=== PATIENT | female | born 1990 | race Caucasian/White ===

== ENCOUNTER 2016-06-20 11:51 | Emergency (ER) | payer OTHER ==
[2016-06-20 12:03] VITALS: BMI 31.4
--- NOTE | 2016-06-20 12:10 | PDOC ---
History of Present Illness - General Chief Complaint: Vaginal Bleeding Stated Complaint: 8 WKS , BLEEDING Time Seen by Provider: 06/20/16 12:08 History Source: Patient Exam Limitations: No Limitations - History of Present Illness Initial Comments: 06/20/16 12:10 CHIEF COMPLAINT: Vaginal bleeding HISTORY OF PRESENT ILLNESS: This is a 25 year old female a1, 7 weeks 5 days according to u/s done yesterday, with a history of asthma (1 ICU admission during , never intubated) who presents to the ED complaining of vaginal spotting this morning. She denies pelvic pain, dysuria, or any other symptoms. Patient is Rh-. Ob is Dr. Parks. REVIEW OF SYSTEMS: GENERAL/CONSTITUTIONAL: No fever or chills. No weakness. No weight change. HEAD, EYES, EARS, NOSE AND THROAT: No change in vision. No ear pain or discharge. No sore throat. CARDIOVASCULAR: No chest pain or palpitations. RESPIRATORY: No cough, wheezing, or shortness of breath. GASTROINTESTINAL: No nausea, vomiting, diarrhea or constipation. GENITOURINARY: See HPI. MUSCULOSKELETAL: No joint or muscle swelling or pain. No neck or back pain. SKIN: No rash or easy bruising. NEUROLOGIC: No headache, vertigo, loss of consciousness, or loss of sensation. PSYCHIATRIC: No depression or anxiety. ENDOCRINE: No increased thirst. No abnormal weight change. HEMATOLOGIC/LYMPHATIC: No anemia, easy bleeding, or history of blood clots. ALLERGIC/IMMUNOLOGIC: No hives or skin allergy. No latex allergy. PHYSICAL EXAM: GENERAL: The patient is awake, alert, and fully oriented, in no acute distress. HEAD: Normal with no signs of trauma. ENT: Pupils equal, round and reactive to light, extraocular movements intact, sclera anicteric, conjunctiva clear. Neck supple. LUNGS: Clear to auscultation bilaterally. Normal excursion. No respiratory distress or use of accessory muscles. CV: RRR, S1/S2, no MRG. Cap refill < 2 sec. ABDOMEN: Soft, non-distended, non-tender. EXTREMITIES: Normal range of motion, no edema. NEUROLOGICAL: Normal speech, normal gait. CN II-XII grossly intact. PSYCH: Normal mood, normal affect. SKIN: Warm, dry, normal turgor, no rashes or lesions noted. WILL CALL ORDER CLERK: Normal external exam. Cervix long and closed no blood in vaginal vault. No CMT or adnexal tenderness. Past History - Past Medical History Allergies/Adverse Reactions: Allergies Allergy/AdvReac Type Severity Reaction Status Date / Time amoxicillin [Amoxicillin] Allergy Severe Difficulty Verified 06/20/16 12:03 Breathing Penicillins Allergy Severe Difficulty Verified 06/20/16 12:03 Breathing seafood Allergy Severe Difficulty Uncoded 06/20/16 12:03 Breathing Home Medications: Ambulatory Orders Albuterol Sulfate Inhaler - [Ventolin HFA Inhaler -] 2 inh IH Q2H PRN #1 inh Vitamins (Sjr) - 1 tab PO DAILY #30 tablet 12/18/12 Anemia: No Asthma: Yes Cancer: No Cardiac Disorders: Yes (heart murmur) CVA: No COPD: No CHF: No Dementia: No Diabetes: No GI Disorders: No Disorders: No HTN: No Hypercholesterolemia: No Liver Disease: No Seizures: No Thyroid Disease: No - Surgical History Abdominal Surgery: No Appendectomy: No Cardiac Surgery: No Cholecystectomy: Yes Lung Surgery: No Neurologic Surgery: No Orthopedic Surgery: No - Psycho/Social/Smoking Cessation Hx Anxiety: No Suicidal Ideation: No Smoking Status: No Smoking History: Never smoked Have you smoked in the past 12 months: No Number of Cigarettes Smoked Daily: 0 Hx Alcohol Use: No Drug/Substance Use Hx: No Substance Use Type: None Hx Substance Use Treatment: No *Physical Exam - Vital Signs Last Vital Signs Temp Pulse Resp BP Pulse Ox 98.4 F 85 20 127/73 100 06/20/16 12:01 06/20/16 12:01 06/20/16 12:01 06/20/16 12:01 06/20/16 12:01 ED Treatment Course - LABORATORY CBC & Chemistry Diagram: 06/20/16 13:10 06/20/16 13:10 - RADIOLOGY Radiology Studies Ordered: Category Date Time Status <14WKS US [US] Stat Ultrasound 06/20/16 12:09 Ordered Medical Decision Making - Medical Decision Making 06/20/16 14:58 A/P: 25 year old female with 1st trimester vaginal bleeding. 1. Labs including CBC, beta hcg, T&S, UA/culture 2. Rhogam 3. U/s U/s reviewed: Single, live IUP 7 weeks 6 days with FHR 156bpm. Small subchorionic hemorrhage. *DC/Admit/Observation/Transfer Diagnosis at time of Disposition: Vaginal bleeding before 22 weeks gestation - Discharge Dispostion Admit: No - Referrals Referrals: Remigio Parks MD [Staff Physician] - Call tomorrow - Patient Instructions Printed Discharge Instructions: DI for Vaginal Bleeding During Additional Instructions: -Pelvic rest (no sexual intercourse) until seen by ob provider -Follow up with your ob this week -Return here for heavy bleeding (more than one pad per hour) or any other concerning symptoms
[2016-06-20 13:17] LABS: BASOPHIL 0.6 % (0-2.0); EOSINOPHIL 3.7 % (0-4.5); MCH 26.8 pg (25.7-33.7); MCHC 33.3 g/dl (32.0-36.0); MEAN CELL VOLUME 80.4 fl (80-96); MEAN PLT VOLUME 7.4 fl (7.5-11.1); NEUTROPHILS 73.1 % (42.8-82.8); PLATELET COUNT 227 K/MM3 (134-434); RDW 15.7 % (11.6-15.6); WHITE BLOOD COUNT 6.3 K/mm3 (4.0-10.0)
[2016-06-20 13:23] LABS: URINE APPEARANCE CLEAR; URINE BILIRUBIN NEGATIVE (NEGATIVE); URINE BLOOD NEGATIVE (NEGATIVE); URINE COLOR YELLOW; URINE GLUCOSE (UA) NEGATIVE (NEGATIVE); URINE KETONE NEGATIVE (NEGATIVE); URINE LEUK ESTERASE NEGATIVE (NEGATIVE); URINE NITRITE NEGATIVE (NEGATIVE); URINE PROTEIN NEGATIVE (NEGATIVE); URINE UROBILINOGEN NEGATIVE E.U./dl (0.2-1.0)
[2016-06-20 13:47] LABS: ALBUMIN 3.8 g/dl (3.4-5.0); ANION GAP 9 (8-16); CALCIUM 8.6 mg/dL (8.5-10.1); CO2 27 mmol/L (21-32); CREATININE 0.7 mg/dL (0.55-1.02); GLUCOSE,RANDOM 78 mg/dL (74-106); SGOT/AST 6 U/L (15-37); SGPT/ALT 15 U/L (12-78)
[2016-06-20 14:03] LABS: ALK PHOS 90 U/L (45-117); BILIRUBIN,TOTAL 0.4 mg/dL (0.2-1.0); TOT PROT 6.7 g/dl (6.4-8.2)
[2016-06-20] MEDS ORDERED: RHO(D) IMMUNE GLOBULIN 1,500 UNIT DISP.SYRIN IM ONE (15:01)
--- NOTE | 2016-06-20 15:29 | PDOC ---
*Physical Exam - Vital Signs Last Vital Signs Temp Pulse Resp BP Pulse Ox 98.4 F 85 20 127/73 100 06/20/16 12:01 06/20/16 12:01 06/20/16 12:01 06/20/16 12:01 06/20/16 12:01 ED Treatment Course - LABORATORY CBC & Chemistry Diagram: 06/20/16 13:10 06/20/16 13:10 - ADDITIONAL ORDERS Additional order review: Laboratory Results 06/20/16 06/20/16 06/20/16 13:10 13:10 13:10 Sodium 140 Potassium 3.9 Chloride 104 Carbon Dioxide 27 Anion Gap 9 BUN 9 D Creatinine 0.7 D Creat Clearance w eGFR > 60 Random Glucose 78 Calcium 8.6 Total Bilirubin 0.4 AST 6 L ALT 15 Alkaline Phosphatase 90 Total Protein 6.7 Albumin 3.8 Beta HCG, Quant 07420.1 Urine Color Yellow Urine Appearance Clear Urine pH 5.0 D Ur Specific [place] 1.029 Urine Protein Negative Urine Glucose (UA) Negative Urine Ketones Negative Urine Blood Negative Urine Nitrite Negative Urine Bilirubin Negative Urine Urobilinogen Negative Ur Leukocyte Esterase Negative Blood Type A NEGATIVE Antibody Screen Negative Unit Expiration Date [id number] 06/20/16 13:10 RBC 4.70 MCV 80.4 MCHC 33.3 RDW 15.7 H MPV 7.4 L Neutrophils % 73.1 Lymphocytes % 17.2 Monocytes % 5.4 Eosinophils % 3.7 Basophils % 0.6 Medical Decision Making - Medical Decision Making 06/20/16 15:28 Patient seen and evaluated with the nurse practitioner. I agree with the overall evaluation, assessment, and management with the following summary of visit: 25y/o F with 1st trimester vaginal bleeding. + IUP with small subchorionic hemorrhage. Rh- received Rhogham. will f/u with OB. *DC/Admit/Observation/Transfer Diagnosis at time of Disposition: Vaginal bleeding before 22 weeks gestation - Referrals Referrals: Remigio Parks MD [Staff Physician] - Call tomorrow - Patient Instructions Printed Discharge Instructions: DI for Vaginal Bleeding During Additional Instructions: -Pelvic rest (no sexual intercourse) until seen by ob provider -Follow up with your ob this week -Return here for heavy bleeding (more than one pad per hour) or any other concerning symptoms - Post Discharge Activity
[2016-06-20 17:04] VITALS: BP 120/70; PULSE 68; TEMP 98.1
== END 2016-06-20 17:04 | disposition home or self-care (01) ==
LOC: JER 11:51
DX: O20.8 Other hemorrhage in early pregnancy (principal); Z3A.01 Less than 8 weeks gestation of pregnancy; J45.909 Unspecified asthma, uncomplicated
CPT/HCPCS: 36415; 76801-TC; 80053; 81003; 84702; 85025; 86850; 86900; 86901; 86999; 87086; 99282-25; J1561

== ENCOUNTER 2016-07-22 17:18 | Emergency (ER) | payer OTHER ==
[2016-07-22 17:24] VITALS: BP 116/71; PULSE 80; TEMP 98; BMI 31.4
--- NOTE | 2016-07-22 17:36 | PDOC ---
History of Present Illness - History of Present Illness Initial Comments: 07/22/16 17:45 Patient is a 25 year old female, 14 weeks, / A1, with significant medical hx of asthma s/p 1 ICU admission during (no intubation), who is presenting to the ED with vaginal bleeding since today. The patient went to the bathroom this morning passed a small red clot. A few hours later, the patient passed another small red clot while using the bathroom. Patient denies any abdominal pain or cramping. The patient was seen on 06/20/16 for vaginal bleeding and she received an US which revealed single live IUP of 7 weeks. The patient is Rh negative and receive a dose of rhogam last month. CHIEF LEGAL OFFICER: Remigio Parks MD PMD: Arie Barr MD <Leonila Wright - Last Filed: 07/22/16 18:56> <Christie Granados - Last Filed: 07/22/16 21:27> - General Chief Complaint: Vaginal Bleeding Stated Complaint: VAGINAL BLEEDING Time Seen by Provider: 07/22/16 17:34 Past History <Leonila Wright - Last Filed: 07/22/16 18:56> - Past Medical History Anemia: No Asthma: Yes Cancer: No Cardiac Disorders: Yes (heart murmur) CVA: No COPD: No CHF: No Dementia: No Diabetes: No GI Disorders: No Disorders: No HTN: No Hypercholesterolemia: No Liver Disease: No Seizures: No Thyroid Disease: No - Surgical History Abdominal Surgery: No Appendectomy: No Cardiac Surgery: No Cholecystectomy: Yes Lung Surgery: No Neurologic Surgery: No Orthopedic Surgery: No - Reproductive History (#): 7 Para: 5 - Psycho/Social/Smoking Cessation Hx Anxiety: No Suicidal Ideation: No Smoking Status: No Smoking History: Never smoked Have you smoked in the past 12 months: No Number of Cigarettes Smoked Daily: 0 Information on smoking cessation initiated: No Hx Alcohol Use: No Drug/Substance Use Hx: No Substance Use Type: None Hx Substance Use Treatment: No <Christie Granados - Last Filed: 07/22/16 21:27> - Past Medical History Allergies/Adverse Reactions: Allergies Allergy/AdvReac Type Severity Reaction Status Date / Time amoxicillin [Amoxicillin] Allergy Severe Difficulty Verified 07/22/16 17:21 Breathing Penicillins Allergy Severe Difficulty Verified 07/22/16 17:21 Breathing seafood Allergy Severe Difficulty Uncoded 07/22/16 17:21 Breathing Home Medications: Ambulatory Orders Albuterol Sulfate Inhaler - [Ventolin HFA Inhaler -] 2 inh IH Q2H PRN #1 inh Vitamins (Sjr) - 1 tab PO DAILY #30 tablet 12/18/12 Review of Systems - Review of Systems Comments:: 07/22/16 17:52 CONSTITUTIONAL: Absent: fever, chills, diaphoresis, generalized weakness, malaise, loss of appetite HEENT: Absent: rhinorrhea, nasal congestion, throat pain, throat swelling, difficulty swallowing, mouth swelling, ear pain, eye pain, visual changes CARDIOVASCULAR: Absent: chest pain, syncope, palpitations, irregular heart rate, lightheadedness , peripheral edema RESPIRATORY: Absent: cough, shortness of breath, dyspnea with exertion, orthopnea, wheezing, stridor, hemoptysis GASTROINTESTINAL: Absent: abdominal pain, abdominal distension, nausea, vomiting, diarrhea, constipation, melena, hematochezia GENITOURINARY: Present: vaginal bleeding Absent: dysuria, frequency, urgency, hesitancy, hematuria, flank pain, genital pain MUSCULOSKELETAL: Absent: myalgia, arthralgia, joint swelling SKIN: Absent: rash, itching, pallor HEMATOLOGIC/IMMUNOLOGIC: Absent: easy bleeding, easy bruising, lymphadenopathy, frequent infections ENDOCRINE: Absent: unexplained weight gain, unexplained weight loss, heat intolerance, cold intolerance NEUROLOGIC: Absent: headache, focal weakness or paresthesia, dizziness, unsteady gait, seizure, mental status changes, bladder or bowel incontinence. PSYCHIATRIC: Absent: anxiety, depression, suicidal or homicidal ideation, hallucinations <Leonila Wright - Last Filed: 07/22/16 18:56> *Physical Exam - Vital Signs Last Vital Signs Temp Pulse Resp BP Pulse Ox 98.0 F 80 18 116/71 100 07/22/16 17:22 07/22/16 17:22 07/22/16 17:22 07/22/16 17:22 07/22/16 17:22 - Physical Exam Comments: 07/22/16 17:53 GENERAL: Well developed, well nourished. Awake and alert. No acute distress. HEENT: Normocephalic, atraumatic. PERRLA, EOMI. No conjunctival pallor. Sclera are non- icteric. Moist mucous membranes. Oropharynx is clear. NECK: Supple. Full ROM. No JVD. Carotid pulses 2+ and symmetric, without bruits. No thyromegaly. No lymphadenopathy. CARDIOVASCULAR: Regular rate and rhythm. No murmurs, rubs, or gallops. Distal pulses are 2+ and symmetric. PULMONARY: No evidence of respiratory distress. Lungs clear to auscultation bilaterally. No wheezing, rales or rhonchi. ABDOMINAL: Soft. Non-tender. Non-distended. No rebound or guarding. No organomegaly. Normoactive bowel sounds. MUSCULOSKELETAL: Normal range of motion at all joints. No bony deformities or tenderness. No CVA tenderness. EXTREMITIES: No cyanosis. No clubbing. No edema. No calf tenderness. SKIN: Warm and dry. Normal capillary refill. No rashes. No jaundice. NEUROLOGICAL: Alert, awake, appropriate. Cranial nerves 2-12 intact. Normal speech. Gait is normal without ataxia. PSYCHIATRIC: Cooperative. Good eye contact. Appropriate mood and affect. PELVIC: Patient reports passing scant blood. <Leonila Wright - Last Filed: 07/22/16 18:56> - Vital Signs Last Vital Signs Temp Pulse Resp BP Pulse Ox 98.0 F 80 18 116/71 100 07/22/16 17:22 07/22/16 17:22 07/22/16 17:22 07/22/16 17:22 07/22/16 17:22 <Christie Granados - Last Filed: 07/22/16 21:27> ED Treatment Course - RADIOLOGY Radiograph Interpretation: 07/22/16 18:56 Steam Box Operator: ([email or web address]) Report Date: 07/22/2016 17:56:00 Report Status: Preliminary Begin of Report Content Referring Physician: Christie Granados Patient Name: Jane Giron THIS IS A PRELIMINARY REPORT FROM [facility] EXAM: Obstetrical ultrasound, less than 14 weeks IMAGES: 17 DATE OF EXAM: 2016-07-22 17:56:08.0 REASON FOR EXAM: Vaginal bleeding COMPARISON: None Findings: Single live intrauterine gestation at approximately 12 weeks and 3 days, based on crown-rump length. heart rate noted at 156 beats per minute. Cervix measures 3.4 cm and appears closed. Maternal ovaries appear normal. No obvious subchorionic hemorrhage. THIS DOCUMENT HAS BEEN ELECTRONICALLY SIGNED Román Omalley MD 07/22/2016 18:53 EST M.D. Please call [facility] [phone] ([phone]) with questions. End of Report Content <Leonila Wright - Last Filed: 07/22/16 18:56> Medical Decision Making - Medical Decision Making 07/22/16 18:30 25 yo female who is approx 14 weeks p/w scant vaginal blood seen when she urinated she already received rhogam for this PMH 07/22/16 19:00 US reveals SL IUP 12 weeks 3 days FHT 156 bpm imp threatened Ab plan follow up with her feather sawyer this week 07/22/16 21:27 <Christie Granados - Last Filed: 07/22/16 21:27> *DC/Admit/Observation/Transfer - Attestations Scribe Attestion: 07/22/16 17:54 Documentation prepared by Leonila Wright, acting as biomedical photographer for Christie Granados MD. <Leonila Wright - Last Filed: 07/22/16 18:56> <Christie Granados - Last Filed: 07/22/16 21:27> Diagnosis at time of Disposition: Vaginal bleeding before 22 weeks gestation - Discharge Dispostion Disposition: HOME Condition at time of disposition: Stable - Referrals Referrals: Arie Barr [Primary Care Provider] - - Patient Instructions Printed Discharge Instructions: DI for Threatened Additional Instructions: please continue your care and follow up with your feather sawyer
== END 2016-07-22 19:37 | disposition home or self-care (01) ==
LOC: JER 17:18
DX: O20.0 Threatened abortion (principal); Z3A.12 12 weeks gestation of pregnancy
CPT/HCPCS: 76816-TC; 99283-25

== ENCOUNTER 2017-01-27 12:00 | Inpatient (IN) | payer OTHER ==
[2017-01-27] MEDS ORDERED: DEXTROSE 5%-LACTATED RINGERS 1,000 ML IV ONE (13:00)
[2017-01-27] MEDS: DEXTROSE 5%-LACTATED RINGERS 1,000 ML IV SCH (13:45)
[2017-01-28 00:28] LABS: BASOPHIL 0.5 % (0-2.0); EOSINOPHIL 2.1 % (0-4.5); MEAN PLT VOLUME 6.7 fl (7.5-11.1); NEUTROPHILS 83.7 % (42.8-82.8); PLATELET COUNT 311 K/MM3 (134-434); RDW 16.8 % (11.6-15.6); WHITE BLOOD COUNT 13.1 K/mm3 (4.0-10.0)
[2017-01-28 00:47] LABS: INR 0.95 (0.82-1.09); PROTHROMBIN TIME (PATIENT) 10.7 SEC (9.98-11.88)
[2017-01-28 00:50] LABS: ACTIVATED PTT 24.5 SECONDS (26.9-34.4)
[2017-01-28 00:55] LABS: ANION GAP 12 (8-16); CALCIUM 7.8 mg/dL (8.5-10.1); CO2 20 mmol/L (21-32); CREATININE 0.8 mg/dL (0.55-1.02); GLUCOSE,RANDOM 97 mg/dL (74-106)
[2017-01-28 01:07] VITALS: BMI 31.5
[2017-01-28] MEDS ORDERED: DEXTROSE 5%-LACTATED RINGERS 1,000 ML IV SCH (01:15)
--- NOTE | 2017-01-28 01:27 | DS ---
Physical Exam-ROAD REPAIRER Vital Signs: Vital Signs Temperature 98.5 F 01/27/17 22:50 Pulse Rate 110 H 01/27/17 22:50 Respiratory Rate 20 01/27/17 22:50 Blood Pressure 124/84 01/27/17 22:50 O2 Sat by Pulse Oximetry (%) Labs: CBC, BMP 01/27/17 23:40 01/27/17 23:40 Delivery, Single - [place] Feeding Plan Initial Plan: Elected not to breastfeed exclusively throughout hospitalization Discharge Summary Reason For Visit: LABOR ADMIT - Instructions Diet, Activity, Other Instructions: Patient is being discharge home as per MD orders. Patient is to keep next scheduled MD appointment. Return to activities of daily living, diet as tolerated and increase oral intake. Return to labor and delivery if any signs of contractions strong and regular, decrease movement, rupture of membranes or any vaginal bleeding. All questions answered prior to discharge. Patient verbalizes understanding of discharge instructions. Referrals: [facility] ([facility]) [Outside] - Home Medications Comprehensive Discharge Medication List: Ambulatory Orders Albuterol Sulfate Inhaler - [Ventolin HFA Inhaler -] 2 inh IH Q2H PRN #1 inh Vitamins (Sjr) - 1 tab PO DAILY #30 tablet 12/18/12
--- NOTE | 2017-01-28 01:33 | HP ---
Past Medical History - Admission Chief Complaint: Labor pain History of Present Illness: 26 yo @ 39 weeks gestation, EDC 01/31/17, admitted for labor pain. History Source: Patient Limitations to Obtaining History: No Limitations - Past Medical History Pulmonary: Yes: Asthma. No: Bronchitis, Cancer, COPD, O2 Dependent, Pneumonia, Previously Intubated, Pulmonary Embolus, Pulmonary Fibrosis, Sleep Apnea, Other ...: 7 ...Para: 5 ...Term: 5 ...: 0 ...Spon : 0 ...Induced : 1 ...Multiple Gestation: 0 ...LMP: 04/25/16 ... Weeks Gestation by Dates: 39.3 ...EDC by Dates: 01/31/17 ...EDC by Sono: 01/30/17 - Past Surgical History Past Surgical History: Yes: Cholecystectomy Hx Myomectomy: No Hx Transabdominal Cerclage: No - Smoking History Smoking history: Never smoked Have you smoked in the past 12 months: No Aproximately how many cigarettes per day: 0 - Alcohol/Substance Use Hx Alcohol Use: No - Social History Usual Living Arrangement: Yes: With Significant Other History of Recent Travel: No Home Medications - Allergies Allergies/Adverse Reactions: Allergies Allergy/AdvReac Type Severity Reaction Status Date / Time amoxicillin [Amoxicillin] Allergy Severe Difficulty Verified 01/27/17 13:01 Breathing Penicillins Allergy Severe Difficulty Verified 01/27/17 13:01 Breathing pneumococcal vaccine Allergy Verified 01/27/17 13:01 seafood Allergy Severe Difficulty Uncoded 01/27/17 13:01 Breathing - Home Medications Home Medications: Ambulatory Orders Albuterol Sulfate Inhaler - [Ventolin HFA Inhaler -] 2 inh IH Q2H PRN #1 inh Vitamins (Sjr) - 1 tab PO DAILY #30 tablet 12/18/12 Family Disease History - Family Disease History Family History: Unremarkable Family Disease History: Respiratory: Mother Review of Systems - Review of Systems Constitutional: reports: No Symptoms Eyes: reports: No Symptoms HENT: reports: No Symptoms Neck: reports: No Symptoms Cardiovascular: reports: No Symptoms Respiratory: reports: No Symptoms Gastrointestinal: reports: No Symptoms Genitourinary: reports: Pain Breasts: reports: No Symptoms Reported Musculoskeletal: reports: No Symptoms Integumentary: reports: No Symptoms Neurological: reports: No Symptoms Endocrine: reports: No Symptoms Hematology/Lymphatic: reports: No Symptoms Psychiatric: reports: No Symptoms Pain Intensity: 8 Physical Exam - Maternity Vital Signs: Vital Signs Temperature 98.5 F 01/27/17 22:50 Pulse Rate 110 H 01/27/17 22:50 Respiratory Rate 20 01/27/17 22:50 Blood Pressure 124/84 01/27/17 22:50 O2 Sat by Pulse Oximetry (%) Constitutional: Yes: Well Nourished Eyes: Yes: Conjunctiva Clear HENT: Yes: Atraumatic Neck: Yes: Supple Cardiovascular: Yes: Regular Rate and Rhythm Lungs: Clear to auscultation - Abdominal Exam/OB Number of Fetuses: Single Presentation: Vertex Intensity: Mod/Strong - Vaginal Exam/OB Vaginal Bleediing: No Dilatation (cm): 6 Effacement (%): 100 Amniotic Membrane Status: Intact Presentation: Vertex/Position Station: -2 - Physical Exam ...Motor Strength: WNL Psychiatric: Yes: Alert, Oriented - Labs Lab Results: CBC, BMP 01/27/17 23:40 01/27/17 23:40 Assessment/Plan Active labor Admit to L&D Anticipate
--- NOTE | 2017-01-28 01:35 | PN ---
Delivery - Delivery Vaginal Delivery: Spontaneous Episiotomy/Laceration: None EBL (cc): 250 Delivery, Single - Feeding Plan Initial Plan: Elected not to breastfeed exclusively throughout hospitalization Remarks - Remarks Remarks: Normal spontaneous vaginal delivery of a live infant. Nose / Oropharynx suctioned @ perineum. Nuchal cord x 1 cut and clamped. Placenta expelled spontaneously intact.
[2017-01-28] MEDS ORDERED: WITCH HAZEL 50% (TUCKS) 40 PAD/JAR PAD TP PRN (01:36)
[2017-01-28] MEDS ORDERED: METHYLERGONOVINE MALEATE 0.2 MG/1 ML AMP IM PRN (01:36)
[2017-01-28] MEDS ORDERED: BENZOCAINE 20% 57 GM BOTTLE TP PRN (01:36)
[2017-01-28] MEDS ORDERED: BENZOCAINE 28 GM HEMORRHOIDAL OINTMENT TP PRN (01:36)
[2017-01-28] MEDS ORDERED: BISACODYL 10 MG SUPP.RECT RC PRN (01:36)
[2017-01-28] MEDS ORDERED: OXYTOCIN 20 UNITS in 0.9% NS 1,000 ML IV SCH (01:45)
[2017-01-28] MEDS ORDERED: CLINDAMYCIN 900 MG PREMIX IVPB 50 ML IVPB ONE (02:06)
[2017-01-28] MEDS: IBUPROFEN 600 MG TABLET (FP) PO PRN ×4 (02:25→23:19)
[2017-01-28] MEDS: ACETAMINOPHEN 325 MG TABLET (FP) PO PRN ×4 (02:26→23:20)
[2017-01-28] MEDS ORDERED: CLINDAMYCIN 600MG PREMIX IVPB 50 ML IVPB SCH ×2 (08:00→12:15)
[2017-01-28] MEDS: FERROUS SO4 325 MG TABLET (FP) PO SCH ×3 (08:55→16:37)
[2017-01-28] MEDS: PRENATAL VITAMINS W/ FOLIC ACID TABLET (FP) PO SCH (09:24)
[2017-01-28] MEDS: DEXTROSE 5%-LACTATED RINGERS 1,000 ML IV SCH (20:01)
[2017-01-28] MEDS: SENNOSIDES/DOCUSATE COMBO (SENNA PLUS) TABLET (UD) PO PRN (21:41)
--- NOTE | 2017-01-29 06:55 | PN ---
Post Progress Note Post Day: 1 Type of Delivery: Vital Signs: Vital Signs Temperature 98.7 F 01/28/17 22:00 Pulse Rate 80 01/28/17 22:00 Respiratory Rate 18 01/28/17 22:00 Blood Pressure 124/77 01/28/17 22:00 O2 Sat by Pulse Oximetry (%) 99 01/28/17 01:30 Breast Exam: Yes: Soft Uterus: Yes: Fundus Firm Abdomen/GI: Yes: Abdomen soft Lochia: Yes: Rubra Lochia, amount: Small Extremities: Yes: Calves non-tender Perineum: Yes: Intact Activity: Ambulating - Labs Labs: CBC WBC 13.1 K/mm3 (4.0-10.0) H D 01/27/17 23:40 RBC 4.15 M/mm3 (3.60-5.2) 01/27/17 23:40 Hgb 9.6 GM/dL (10.7-15.3) L D 01/27/17 23:40 Hct 29.9 % (32.4-45.2) L D 01/27/17 23:40 MCV 72.0 fl (80-96) L 01/27/17 23:40 MCH 23.0 pg (25.7-33.7) L 01/27/17 23:40 MCHC 32.0 g/dl (32.0-36.0) 01/27/17 23:40 RDW 16.8 % (11.6-15.6) H 01/27/17 23:40 Plt Count 311 K/MM3 (134-434) D 01/27/17 23:40 MPV 6.7 fl (7.5-11.1) L 01/27/17 23:40 Neutrophils % 83.7 % (42.8-82.8) H 01/27/17 23:40 Lymphocytes % 8.9 % (8-40) D 01/27/17 23:40 Monocytes % 4.8 % (3.8-10.2) 01/27/17 23:40 Eosinophils % 2.1 % (0-4.5) 01/27/17 23:40 Basophils % 0.5 % (0-2.0) 01/27/17 23:40 Assessment/Plan stable oob reg diet dc tomorrow
[2017-01-29 08:31] LABS: BASOPHIL 0.7 % (0-2.0); EOSINOPHIL 4.1 % (0-4.5); MCH 23.7 pg (25.7-33.7); MCHC 32.9 g/dl (32.0-36.0); MEAN CELL VOLUME 72.2 fl (80-96); MEAN PLT VOLUME 6.6 fl (7.5-11.1); NEUTROPHILS 67.5 % (42.8-82.8); RDW 16.8 % (11.6-15.6); WHITE BLOOD COUNT 10.1 K/mm3 (4.0-10.0)
[2017-01-29] MEDS: PRENATAL VITAMINS W/ FOLIC ACID TABLET (FP) PO SCH (09:10)
[2017-01-29] MEDS: FERROUS SO4 325 MG TABLET (FP) PO SCH ×3 (09:11→17:18)
[2017-01-29] MEDS: IBUPROFEN 600 MG TABLET (FP) PO PRN ×2 (09:11→19:16)
[2017-01-29] MEDS ORDERED: FLU VACC QS2017-18 36MOS UP/PF 60 MCG/0.5 ML SYRINGE IM ONE (10:00)
[2017-01-29] MEDS ORDERED: DIPHTH,PERTUSS(ACELL),TET 0.5 ML DISP.SYRIN IM ONE (10:00)
[2017-01-29 13:21] LABS: PLATELET COMMENT2 NO CLOTTING DETECTED; PLATELET COUNT 242 K/MM3 (134-434); PLATELET ESTIMATE ADEQUATE (NORMAL)
[2017-01-29] MEDS: ACETAMINOPHEN 325 MG TABLET (FP) PO PRN (19:15)
[2017-01-29] MEDS: SENNOSIDES/DOCUSATE COMBO (SENNA PLUS) TABLET (UD) PO PRN (20:53)
[2017-01-30] MEDS: ACETAMINOPHEN 325 MG TABLET (FP) PO PRN ×2 (01:36→08:44)
[2017-01-30] MEDS: IBUPROFEN 600 MG TABLET (FP) PO PRN ×2 (01:37→08:41)
[2017-01-30] MEDS: FERROUS SO4 325 MG TABLET (FP) PO SCH (08:35)
[2017-01-30 08:49] VITALS: BP 112/71; PULSE 91; TEMP 98.6
[2017-01-30] MEDS: PRENATAL VITAMINS W/ FOLIC ACID TABLET (FP) PO SCH (10:12)
== END 2017-01-30 11:55 | disposition home or self-care (01) | DRG 560 ==
LOC: JDEL 12:00 → JLDR 22:50 → J3W 01-28 02:53
PROVIDERS: ADMIT Obstetrics & Gynecology; ATTEND Obstetrics & Gynecology
PROC: 10E0XZZ Delivery of Products of Conception, External Approach (ICD-10-PCS; principal; 2017-01-28)
PROC: 3E0334Z Introduction of Serum, Toxoid and Vaccine into Peripheral Vein, Percutaneous Approach (ICD-10-PCS; 2017-01-28)
DX: O26.893 Other specified pregnancy related conditions, third trimester (principal); Z67.91 Unspecified blood type, Rh negative; Z3A.39 39 weeks gestation of pregnancy; Z37.0 Single live birth
CPT/HCPCS: 36415; 59025; 80048; 85025; 85461; 85610; 85730; 86593; 86850; 86900; 86901; 86999; 90686; 90715; G0008

== ENCOUNTER 2017-07-20 15:58 | Emergency (ER) | payer OTHER ==
[2017-07-20 16:11] VITALS: BP 117/78; PULSE 81; TEMP 98.8; BMI 29.2
--- NOTE | 2017-07-20 16:53 | PDOC ---
History of Present Illness - General Chief Complaint: Pain, Acute Stated Complaint: SICK Time Seen by Provider: 07/20/17 16:14 History Source: Patient Exam Limitations: No Limitations - History of Present Illness Initial Comments: CHIEF COMPLAINT: 26 y/o female here for treatment for STDs. HISTORY OF PRESENT ILLNESS: The patient states her current boyfriend and father of her 6 children went on a break for 1 month and after they got back together he was diagnosed with chlamydia. She states he was just treated and told her to be treated. She is asymptomatic. Vital signs on arrival are within normal limits. REVIEW OF SYSTEMS: GENERAL/CONSTITUTIONAL: No fever/chills. No weakness. No weight change. HEAD, EYES, EARS, NOSE AND THROAT: No change in vision. No ear pain or discharge. No sore throat. CARDIOVASCULAR: No chest pain or shortness of breath. RESPIRATORY: No cough, wheezing, or hemoptysis. GASTROINTESTINAL: No nausea, vomiting, diarrhea. GENITOURINARY: No dysuria, frequency, or change in urination. MUSCULOSKELETAL: No joint or muscle swelling or pain. No neck or back pain. SKIN: No rash or easy bruising. NEUROLOGIC: No headache, vertigo, loss of consciousness, or loss of sensation. PHYSICAL EXAM: GENERAL: The patient is awake, alert, and fully oriented, in no acute distress. SHe is well appearing and ambulatory. HEAD: Normal with no signs of trauma. ENT: Pupils equal, round and reactive to light, extraocular movements intact, sclera anicteric, conjunctiva clear. Neck supple. LUNGS: Clear to auscultation bilaterally. Normal excursion. No respiratory distress or use of accessory muscles. CV: RRR, S1/S2, no MRG. Cap refill < 2 sec. ABDOMEN: Soft, non-distended, non-tender even to deep palpation, no hepatomegaly or splenomegaly, no masses. EXTREMITIES: Normal range of motion, no edema. NEUROLOGICAL: Normal speech, normal gait. CN II-XII grossly intact. PSYCH: Normal mood, normal affect. SKIN: Warm, dry, normal turgor, no rashes or lesions noted. Past History - Past Medical History Allergies/Adverse Reactions: Allergies Allergy/AdvReac Type Severity Reaction Status Date / Time amoxicillin [Amoxicillin] Allergy Severe Difficulty Verified 07/20/17 16:06 Breathing Penicillins Allergy Severe Difficulty Verified 07/20/17 16:06 Breathing pneumococcal vaccine Allergy Verified 07/20/17 16:06 seafood Allergy Severe Difficulty Uncoded 07/20/17 16:06 Breathing sea food Allergy Uncoded 07/20/17 16:06 Home Medications: Ambulatory Orders NK [No Known Home Medication] 07/20/17 Anemia: No Asthma: Yes Cancer: No Cardiac Disorders: No CVA: No COPD: No CHF: No Dementia: No Diabetes: No GI Disorders: No Disorders: No HTN: No Hypercholesterolemia: No Liver Disease: No Seizures: No Thyroid Disease: No - Surgical History Abdominal Surgery: No Appendectomy: No Cardiac Surgery: No Cholecystectomy: Yes Lung Surgery: No Neurologic Surgery: No Orthopedic Surgery: No - Reproductive History (#): 7 Para: 5 - Immunization History Immunization Up to Date: Yes - Suicide/Smoking/Psychosocial Hx Smoking Status: No Smoking History: Never smoked Have you smoked in the past 12 months: No Number of Cigarettes Smoked Daily: 0 Information on smoking cessation initiated: No Hx Alcohol Use: No Drug/Substance Use Hx: No Substance Use Type: None Hx Substance Use Treatment: No *Physical Exam - Vital Signs Last Vital Signs Temp Pulse Resp BP Pulse Ox 98.8 F 81 18 117/78 98 07/20/17 16:06 07/20/17 16:06 07/20/17 16:06 07/20/17 16:06 07/20/17 16:06 Medical Decision Making - Medical Decision Making A/P: 26 y/o female here for treatment for chlamydia after exposure to an infected individual. Plan is as follows: 1. UA/hcg 2. GC/chlamydia 3. Treatment with Ceftriaxone and azithro 4. Monitor for ADR No ADRs 30 minutes after admin of ceftriaxone. Will discharge to home. INstructed her to abstain from sex for 1 week and inform all sexual partners they should be treated. The patient verbalizes understanding of all instructions, has no further questions and is awaiting discharge. *DC/Admit/Observation/Transfer Diagnosis at time of Disposition: Exposure to chlamydia - Discharge Dispostion Disposition: HOME Condition at time of disposition: Good - Referrals Referrals: Arie Barr [Primary Care Provider] - - Patient Instructions Printed Discharge Instructions: DI for Chlamydia Additional Instructions: Discharge Instructions: -You were treated for potential exposure to chlamydia with Ceftriaxone and Azithromycin -Please abstain from sex for 1 week -Inform all sexual partners to be treated -Return to the ER with any worsening or concerning symptoms - Post Discharge Activity
[2017-07-20] MEDS ORDERED: AZITHROMYCIN 1 GM PACKET PO ONE (17:03)
[2017-07-20] MEDS ORDERED: AZITHROMYCIN 250 MG TABLET PO ONE (17:06)
[2017-07-20] MEDS ORDERED: AZITHROMYCIN 250 MG TABLET ONE (17:06)
[2017-07-20 19:45] LABS: URINE APPEARANCE CLEAR; URINE BILIRUBIN NEGATIVE (<2.0 mg/dL); URINE BLOOD 1+ (NEGATIVE); URINE COLOR YELLOW; URINE GLUCOSE (UA) NEGATIVE (NEGATIVE); URINE KETONE NEGATIVE (NEGATIVE); URINE LEUK ESTERASE NEGATIVE (NEGATIVE); URINE NITRITE NEGATIVE (NEGATIVE); URINE PROTEIN 1+ (NEGATIVE); URINE UROBILINOGEN NEGATIVE mg/dL (0.2-1.0)
[2017-07-20 19:48] LABS: EPI CELLS RARE /HPF (FEW); URINE MUCUS RARE
== END 2017-07-20 18:13 | disposition home or self-care (01) ==
LOC: JERFT 15:58
DX: Z20.2 Contact with and (suspected) exposure to infections with a predominantly sexual mode of transmission (principal)
CPT/HCPCS: 36415; 81003; 81015; 84703; 87086; 87491; 87591; 96372; 99281-25

== ENCOUNTER 2019-10-04 11:49 | Emergency (ER) | payer OTHER ==
--- NOTE | 2019-10-04 11:52 | PDOC ---
Rapid Medical Evaluation Chief Complaint: Head/Neck problem Time Seen by Provider: 10/04/19 11:51 Medical Evaluation: Allergies Allergy/AdvReac Type Severity Reaction Status Date / Time amoxicillin [Amoxicillin] Allergy Severe Difficulty Verified 07/20/17 16:06 Breathing Penicillins Allergy Severe Difficulty Verified 07/20/17 16:06 Breathing pneumococcal vaccine Allergy Verified 07/20/17 16:06 seafood Allergy Severe Difficulty Uncoded 07/20/17 16:06 Breathing sea food Allergy Uncoded 07/20/17 16:06 10/04/19 11:51 I performed a brief in-person evaluation of this patient. Pt is a 29 y/o female with posterior neck "numbness" and pain since last night. She states it hurts to move her neck. Pain started while laying down. No injury. Pertinent physical exam findings: + tender to palpation to the midline inferior c-spine and R trapezius muscle. I have ordered the following: c-spine xr, motrin Patient to proceed to ED for further evaluation Discharge Disposition - Diagnosis Neck pain - Referrals - Patient Instructions - Post Discharge Activity
[2019-10-04 11:53] VITALS: BP 119/79; PULSE 100; TEMP 99; BMI 34.3
[2019-10-04] MEDS ORDERED: IBUPROFEN 600 MG TABLET (FP) PO ONE ×2 (11:53→13:02)
--- NOTE | 2019-10-04 12:59 | PDOC ---
History of Present Illness - General Chief Complaint: Head/Neck problem Stated Complaint: NECK/SHOULDER NUMBNESS Time Seen by Provider: 10/04/19 11:51 History Source: Patient Exam Limitations: No Limitations - History of Present Illness Initial Comments: 10/04/19 12:44 29-year-old female presents to ED with complaints of left shoulder and left arm tingling for the past week which extends to her left bicep. Patient states does frequent lifting since she has 6 children at home but denies any specific injury. Patient denies chest pain, shortness of breath, skin discoloration, or coldness of the extremity. Patient states did not take anything for the above and decided come to the ER for further evaluation. Is this a multiple visit Asthma Patient?: No Timing/Duration: intermittent Severity: mild Associated Symptoms: reports: other (left nwck and arm tingling) Past History - Travel History Traveled outside of the country in the last 30 days: No Close contact w/someone who was outside of country & ill: No - Medical History Allergies/Adverse Reactions: Allergies Allergy/AdvReac Type Severity Reaction Status Date / Time amoxicillin [Amoxicillin] Allergy Severe Difficulty Verified 10/04/19 11:54 Breathing Penicillins Allergy Severe Difficulty Verified 10/04/19 11:54 Breathing pneumococcal vaccine Allergy Verified 10/04/19 11:54 seafood Allergy Severe Difficulty Uncoded 10/04/19 11:54 Breathing sea food Allergy Uncoded 10/04/19 11:54 Home Medications: Ambulatory Orders NK [No Known Home Medication] 07/20/17 Anemia: No Asthma: Yes Cancer: No Cardiac Disorders: No CVA: No COPD: No CHF: No Dementia: No Diabetes: No GI Disorders: No Disorders: No HTN: No Hypercholesterolemia: No Liver Disease: No Seizures: No Thyroid Disease: No - Surgical History Abdominal Surgery: No Appendectomy: No Cardiac Surgery: No Cholecystectomy: Yes Lung Surgery: No Neurologic Surgery: No Orthopedic Surgery: No - Reproductive History (#): 7 Para: 5 - Immunization History Immunization Up to Date: Yes - Psycho-Social/Smoking History Smoking Status: No Smoking History: Never smoked Have you smoked in the past 12 months: No Number of Cigarettes Smoked Daily: 0 - Substance Abuse Hx (Audit-C & DAST Scrn) How often the patient has a drink containing alcohol: Never Score: In Men: 4 or > Positive; In Women: 3 or > Positive: 0 Screen Result (Pos requires Nsg. Audit-10AR): Negative Review of Systems - Review of Systems Able to Perform ROS?: No Is the patient limited Chinese proficient: No Constitutional: No: Symptoms Reported Musculoskeletal: Yes: Muscle Pain, Neck Pain Integumentary: No: Symptoms Reported Neurological: Yes: Numbness, Tingling Endocrine: No: Symptoms Reported Hematologic/Lymphatic: No: Symptoms Reported *Physical Exam - Vital Signs Last Vital Signs Temp Pulse Resp BP Pulse Ox 99.0 F 100 H 18 119/79 99 10/04/19 11:51 10/04/19 11:51 10/04/19 11:51 10/04/19 11:51 10/04/19 11:51 - Physical Exam General Appearance: Yes: Nourished, Appropriately Dressed. No: Apparent Distress HEENT: negative: Pale Conjunctivae Neck: positive: Supple, Tender midline (C5-C6). negative: Decreased range of motion Respiratory/Chest: positive: Lungs Clear, Normal Breath Sounds. negative: Respiratory Distress, Accessory Muscle Use Cardiovascular: positive: Regular Rhythm, Regular Rate. negative: Murmur Gastrointestinal/Abdominal: positive: Soft. negative: Tenderness Integumentary: positive: Normal Color, Warm, Moist Neurologic: positive: Motor Strength 5/5 (Ambulatory. left arm full range of motion) Medical Decision Making - Medical Decision Making 10/04/19 13:05 Chief complaint: Left arm left neck tingling with subjective tingling over the past week which is now resolved. Patient frequent lifting at home due to sick small children. Exam: Patient with C5-C6 tenderness otherwise full range of motion of left upper extremity 5 out of 5 strength extremity 1-2+ radial pulses. Plan: cervical x-ray Motrin 10/04/19 13:07 Cervical x-ray negative for acute pathology. Discharge - Discharge Information Problems reviewed: Yes Clinical Impression/Diagnosis: Neck pain Condition: Good Disposition: HOME - Follow up/Referral - Patient Discharge Instructions Patient Printed Discharge Instructions: DI for Cervical Radiculopathy Additional Instructions: May take Motrin 600 mg every 8 hours to decrease inflammation and discomfort. Avoid lifting with your back and upper extremity using your legs. If symptoms continue may follow-up with orthopedist as today's x-rays were negative - Post Discharge Activity
== END 2019-10-04 13:21 | disposition home or self-care (01) ==
LOC: JERFT 11:49
DX: M54.2 Cervicalgia (principal)
CPT/HCPCS: 72050-TC-FY; 99284-25

== ENCOUNTER 2021-05-08 19:28 | Emergency (ER) | payer OTHER ==
[2021-05-08 19:34] VITALS: BP 123/84; PULSE 105; TEMP 98.1; BMI 37.3
[2021-05-08] MEDS ORDERED: ACETAMINOPHEN 500 MG TABLET (FP) PO ONE (21:12)
[2021-05-08] MEDS ORDERED: METOCLOPRAMIDE HCL 10 MG TABLET (FP) PO ONE ×2 (21:15→21:41)
[2021-05-08] MEDS ORDERED: ACETAMINOPHEN 325 MG TABLET (FP) ONE (21:41)
[2021-05-08 21:45] LABS: PH,URINE 6.5 (5.0-8.0); URINE APPEARANCE CLEAR; URINE BILIRUBIN NEGATIVE (NEGATIVE); URINE COLOR YELLOW; URINE GLUCOSE (UA) NEGATIVE (NEGATIVE); URINE KETONE TRACE (NEGATIVE); URINE LEUK ESTERASE NEGATIVE (NEGATIVE); URINE NITRITE NEGATIVE (NEGATIVE); URINE PROTEIN TRACE (NEGATIVE)
== END 2021-05-08 22:10 | disposition home or self-care (01) ==
LOC: JERFT 19:28
DX: G44.209 Tension-type headache, unspecified, not intractable (principal)
CPT/HCPCS: 81003; 84703; 99283-25

== ENCOUNTER 2021-10-04 20:24 | Emergency (ER) | payer OTHER ==
[2021-10-04 20:32] VITALS: BP 120/83; PULSE 105; TEMP 98.8; BMI 28.3
[2021-10-04] MEDS ORDERED: LIDOCAINE PATCH REMOVAL MC SCH (22:00)
[2021-10-04] MEDS ORDERED: LIDOCAINE 5% TOPICAL PATCH TP ONE (22:25)
[2021-10-04 22:46] LABS: URINE APPEARANCE CLEAR; URINE BILIRUBIN NEGATIVE (NEGATIVE); URINE COLOR YELLOW; URINE GLUCOSE (UA) NEGATIVE (NEGATIVE); URINE KETONE NEGATIVE (NEGATIVE); URINE LEUK ESTERASE NEGATIVE (NEGATIVE); URINE NITRITE NEGATIVE (NEGATIVE); URINE PROTEIN NEGATIVE (NEGATIVE)
[2021-10-04] MEDS ORDERED: KETOROLAC TROMETHAMINE 30 MG/1 ML VIAL IM ONE (22:49)
[2021-10-04] MEDS ORDERED: KETOROLAC TROMETHAMINE 30 MG/1 ML VIAL ONE (22:57)
[2021-10-04] MEDS ORDERED: LIDOCAINE 5% TOPICAL PATCH ONE (22:57)
== END 2021-10-05 | disposition home or self-care (01) ==
LOC: JER 20:24
PROC: 3E023GC Introduction of Other Therapeutic Substance into Muscle, Percutaneous Approach (ICD-10-PCS; principal; 2021-10-04)
DX: M54.89 Other dorsalgia (principal)
CPT/HCPCS: 81003; 84703; 87086; 99284-25

== ENCOUNTER 2022-11-04 18:27 | Emergency (ER) | payer OTHER ==
[2022-11-04 18:31] VITALS: BP 119/74; PULSE 90; RESP 18; TEMP 98.6; BMI 37.3
[2022-11-04] MEDS ORDERED: DOXYCYCLINE HYCLATE 100 MG CAPSULE PO ONE ×2 (19:10→19:30)
[2022-11-04] MEDS ORDERED: WATER FOR INJ,STERILE 10 ML ONE (19:31)
== END 2022-11-04 20:10 | disposition home or self-care (01) ==
LOC: JERFT 18:27
DX: Z20.2 Contact with and (suspected) exposure to infections with a predominantly sexual mode of transmission (principal)
CPT/HCPCS: 36415; 84703; 87491; 87591; 99284-25

== ENCOUNTER 2023-11-19 04:24 | Day surgery (SDC) | payer OTHER ==
[2023-11-18 10:50] VITALS: BMI 24.0
[2023-11-19] MEDS: ceFAZolin SODIUM 1 GM VIAL IVPB ONE
[2023-11-19] MEDS ORDERED: MIDAZOLAM HCL 2 MG/2 ML SINGLE DOSE VIAL ONE (11:50)
[2023-11-19] MEDS ORDERED: PROPOFOL 20 ML ONE (11:50)
[2023-11-19] MEDS ORDERED: ROCURONIUM BROMIDE 50 MG/5 ML SYRINGE ONE (11:51)
[2023-11-19] MEDS ORDERED: SUCCINYLCHOLINE CHLORIDE 200 MG/10 ML SYRINGE ONE (11:51)
[2023-11-19] MEDS ORDERED: ONDANSETRON 4 MG/2 ML VIAL ONE (11:53)
[2023-11-19] MEDS ORDERED: ceFAZolin SODIUM 1 GM VIAL ONE (11:53)
[2023-11-19] MEDS ORDERED: KETOROLAC TROMETHAMINE 30 MG/1 ML VIAL ONE (11:53)
[2023-11-19] MEDS ORDERED: DEXAMETHASONE SOD PHOSPHATE 4 MG/1 ML VIAL ONE (11:53)
[2023-11-19] MEDS ORDERED: LIDOCAINE HCL 1%, 10 MG/ML (20ML VIAL) ONE (12:16)
[2023-11-19] MEDS: LIDOCAINE HCL 1%, 10 MG/ML (20ML VIAL) INF ONE (13:00)
[2023-11-19] MEDS ORDERED: SUGAMMADEX SODIUM 200 MG/2 ML VIAL ONE (13:05)
[2023-11-19] MEDS ORDERED: ONDANSETRON 4 MG/2 ML VIAL IVPUSH PRN (13:39)
[2023-11-19] MEDS: ACETAMINOPHEN 1000 MG/100 ML BAG IVPB ONE (13:58)
[2023-11-19 15:16] VITALS: RESP 20
[2023-11-19 16:36] VITALS: BP 121/74; PULSE 85; TEMP 96.9
== END 2023-11-19 16:10 | disposition home or self-care (01) ==
LOC: JASU-SURG 04:24
PROVIDERS: ATTEND Obstetrics & Gynecology Obstetrics
PROC: 0UT74ZZ Resection of Bilateral Fallopian Tubes, Percutaneous Endoscopic Approach (ICD-10-PCS; principal; 2023-11-19 12:00)
DX: Z30.2 Encounter for sterilization (principal)
CPT/HCPCS: 81025; 88302-TC; 94760; J0131

== ENCOUNTER 2023-11-26 13:46 | Emergency (ER) | payer OTHER ==
[2023-11-26 13:56] VITALS: BP 116/82; PULSE 99; RESP 20; TEMP 98.3; BMI 38.3
[2023-11-26 16:30] LABS: HIV INTERPRETATION NEGATIVE (NEGATIVE)
== END 2023-11-26 14:41 | disposition home or self-care (01) ==
LOC: JERFT 13:46
DX: L23.1 Allergic contact dermatitis due to adhesives (principal)
CPT/HCPCS: 36415; 86803; 87389; 99283-25

== ENCOUNTER 2023-12-28 19:32 | Emergency (ER) | payer OTHER ==
[2023-12-28 19:38] VITALS: BP 169/77; PULSE 82; RESP 20; TEMP 97.7; BMI 38.3
[2023-12-28 21:08] LABS: BASO % 0.7 % (0-2.0); EOS % 3.8 % (0-4.5); HEMATOCRIT 40.7 % (32.4-45.2); HEMOGLOBIN 13.3 GM/dL (10.7-15.3); LYMPH % 15.4 % (8-40); MCH 25.9 pg (25.7-33.7); MCHC 32.8 g/dl (32.0-36.0); MEAN PLT VOLUME 6.5 fl (7.5-11.1); MONO % 2.9 % (3.8-10.2); NEUT % 77.2 % (42.8-82.8); PLATELET COUNT 323 10^3/uL (134-434); RBC 5.15 M/mm3 (3.60-5.2); WHITE BLOOD COUNT 10.1 K/mm3 (4.0-10.0)
[2023-12-28 21:11] LABS: PH,URINE 6.5 (5.0-8.0); URINE APPEARANCE CLEAR; URINE BILIRUBIN NEGATIVE (NEGATIVE); URINE COLOR YELLOW; URINE GLUCOSE (UA) NEGATIVE (NEGATIVE); URINE KETONE TRACE (NEGATIVE); URINE LEUK ESTERASE NEGATIVE (NEGATIVE); URINE NITRITE NEGATIVE (NEGATIVE); URINE PROTEIN NEGATIVE (NEGATIVE)
[2023-12-28 21:21] LABS: INR 1.03 (0.83-1.09); PROTHROMBIN TIME (PATIENT) 11.6 SEC (9.7-13.0)
[2023-12-28 21:41] LABS: POTASSIUM 3.8 mmol/L (3.5-5.1)
[2023-12-28 21:43] LABS: ALBUMIN 3.6 g/dl (3.4-5.0); BLOOD UREA NITROGEN 7.9 mg/dL (7-18); CALCIUM 9.3 mg/dL (8.5-10.1)
[2023-12-28 21:46] LABS: CREATININE 0.8 mg/dL (0.55-1.3)
[2023-12-28 21:48] LABS: BILIRUBIN,TOTAL 0.4 mg/dL (0.2-1); TOT PROT 6.8 g/dl (6.4-8.2)
[2023-12-28] MEDS: SODIUM CHLORIDE 0.9% 500 ML INFUS.BAG IV ONE (22:37)
[2023-12-28 22:54] LABS: HIV INTERPRETATION NEGATIVE (NEGATIVE)
== END 2023-12-29 00:56 | disposition home or self-care (01) ==
LOC: JER 19:32
DX: R42 Dizziness and giddiness (principal)
CPT/HCPCS: 36415; 70450-TC; 71045-TC-FY; 80053; 81003; 84484; 85025; 85610; 86803; 87086; 87389; 93005; 93010; 99285-25

== ENCOUNTER 2024-05-11 16:35 | Emergency (ER) | payer OTHER ==
[2024-05-11 16:44] VITALS: BP 116/82; PULSE 93; RESP 18; TEMP 98.8; BMI 38.3
[2024-05-11 18:16] LABS: URINE APPEARANCE CLEAR; URINE BILIRUBIN NEGATIVE (NEGATIVE); URINE COLOR YELLOW; URINE GLUCOSE (UA) NEGATIVE (NEGATIVE); URINE KETONE TRACE (NEGATIVE); URINE LEUK ESTERASE NEGATIVE (NEGATIVE); URINE NITRITE NEGATIVE (NEGATIVE); URINE PROTEIN TRACE (NEGATIVE)
[2024-05-11 19:57] LABS: HIV INTERPRETATION NEGATIVE (NEGATIVE)
== END 2024-05-11 18:56 | disposition home or self-care (01) ==
LOC: JER 16:35
DX: Z20.2 Contact with and (suspected) exposure to infections with a predominantly sexual mode of transmission (principal)
CPT/HCPCS: 36415; 81003; 84703; 86780; 86803; 87086; 87389; 87491; 87591; 87661; 99284-25